=== PATIENT | female | born 1970 | race African-American/Black ===

== ENCOUNTER 2017-02-04 12:26 | Emergency (ER) | payer OTHER ==
[~2017-02-04] VITALS: Ht 167.6 cm; Wt 57.0 kg
[2017-02-04] MEDS ORDERED: LIPITOR (12:32)
[2017-02-04] MEDS ORDERED: PROZAC (12:32)
[2017-02-04] MEDS ORDERED: ZOLOFT (12:32)
[2017-02-04] MEDS ORDERED: MAGNESIUM/ALUMINUM HYDROXIDE/SIMETHICONE 30ML UDC PO STA (16:59)
[2017-02-04] MEDS ORDERED: SODIUM CHLORIDE 0.9% 1,000 ML IV ONE (16:59)
[2017-02-04] MEDS ORDERED: ONDANSETRON HCL 4MG/2ML VIAL IV STA (16:59)
[2017-02-04] MEDS ORDERED: MORPHINE SULFATE 4 MG/ML CPJ (NOT FOR IM USE) IV STA (16:59)
[2017-02-04 17:25] LABS: PROTHROMBIN TIME 10.5 sec
[2017-02-04 17:28] LABS: BASOPHILS % 0.8 % (0.0-2.0); EOSINOPHILS % 0.7 % (0.0-5.0); HEMATOCRIT. 35.2 % (36.0-48.0); HEMOGLOBIN. 11.8 g/dL (12.0-16.0); LYMPHOCYTES % 34.1 % (20.0-50.0); MEAN CORPUSCULAR VOLUME 83.4 fL (81.0-99.0); MEAN PLATELET VOLUME 7.3 fl (7.4-10.4); MONOCYTES % 8.9 % (2.0-8.0); NEUTROPHILS % 55.5 % (40.0-76.0); PLATELET 242 x1000/uL (130-400); RED BLOOD CELL COUNT 4.22 mill/uL (4.2-5.4); RED CELL DISTRIBUTION WIDTH 13.7 % (11.6-14.6)
[2017-02-04 17:32] LABS: CARBON DIOXIDE 25 mEq/L (21-32); CHLORIDE 108 mEq/L (98-107); ETHANOL BLOOD < 10 mg/dL
[2017-02-04 17:41] LABS: CLARITY URINE CLOUDY (CLEAR); COLOR URINE YELLOW (YELLOW); GLUCOSE URINE NEGATIVE (NEGATIVE); KETONES URINE NEGATIVE (NEGATIVE); LEUKOCYTE ESTERASE URINE NEGATIVE (NEGATIVE); NITRITE URINE NEGATIVE (NEGATIVE); OCCULT BLOOD URINE NEGATIVE (NEGATIVE); PH URINE 8.5 (4.5-8.0); PROTEIN URINE NEGATIVE (NEGATIVE); SPECIFIC GRAVITY URINE 1.014 (1.005-1.030); UROBILINOGEN URINE 0.2 E.U./dL (0.2-1.0)
[2017-02-04 18:03] LABS: *AMPHETAMINES SCREEN URINE NEGATIVE (NEGATIVE); *BARBITURATES SCREEN URINE NEGATIVE (NEGATIVE); *BENZODIAZEPINES SCREEN URINE NEGATIVE (NEGATIVE); *COCAINE SCREEN URINE NEGATIVE (NEGATIVE); METHADONE URINE SCREEN NEGATIVE (NEGATIVE); PHENCYCLIDINE URINE SCREEN NEGATIVE (NEGATIVE)
[2017-02-04 18:14] LABS: CANNABINOID URINE SCREEN PRESUMTIVE POSITIVE (NEGATIVE); OPIATES URINE SCREEN PRESUMTIVE POSITIVE (NEGATIVE)
[2017-02-04] MEDS ORDERED: FAMOTIDINE 20MG/2ML VIAL IV ONE (19:45)
[2017-02-04] MEDS ORDERED: MORPHINE SULFATE 2 MG/ML CPJ (NOT FOR IM USE) IV ONE (20:45)
[2017-02-04 20:48] VITALS: BP 128/72
== END 2017-02-04 21:40 | disposition home or self-care (01) ==
LOC: ER 13:38
DX: R10.13 Epigastric pain (principal); K29.70 Gastritis, unspecified, without bleeding; G43.909 Migraine, unspecified, not intractable, without status migrainosus; Z90.49 Acquired absence of other specified parts of digestive tract; Z90.710 Acquired absence of both cervix and uterus
CPT/HCPCS: 36415; 74176; 80053; 80305; 81001; 81025; 83690; 85025; 85610; 96361; 96374; 96375; 96376; 99285; G0482; J2270; J2405; J3490; Z7610; J7030

== ENCOUNTER 2018-08-31 07:48 | Emergency (ER) | payer MEDICAID, OTHER ==
[~2018-08-31] VITALS: Ht 149.9 cm; Wt 59.0 kg
[~2018-08-31 07:48] MED LIST: LIPITOR; PROZAC; ZOLOFT
[2018-08-31] MEDS ORDERED: HYDROCODONE/ACETAMINOPHEN 5/325MG TABLET PO ONE (08:45)
[2018-08-31] MEDS ORDERED: LORAZEPAM 1MG TABLET PO ONE (08:45)
[2018-08-31 09:28] VITALS: BP 150/92
== END 2018-08-31 09:29 | disposition home or self-care (01) ==
LOC: ER 07:48
DX: M54.9 Dorsalgia, unspecified (principal); F12.10 Cannabis abuse, uncomplicated; G43.909 Migraine, unspecified, not intractable, without status migrainosus; Z90.710 Acquired absence of both cervix and uterus; Z90.49 Acquired absence of other specified parts of digestive tract; Z98.890 Other specified postprocedural states; Z88.8 Allergy status to other drugs, medicaments and biological substances; Z88.6 Allergy status to analgesic agent
CPT/HCPCS: 81025; 99283

== ENCOUNTER 2021-08-29 14:47 | Inpatient (IN) | payer MEDICAID ==
[~2021-08-29] VITALS: Ht 149.9 cm; Wt 56.8 kg
[2021-08-29] MEDS ORDERED: ONDANSETRON HCL 4MG/2ML INJ IV STA ×3 (14:57→19:24)
[2021-08-29] MEDS ORDERED: MORPHINE SULFATE 4 MG/ML CPJ (NOT FOR IM USE) IV STA ×3 (14:57→19:24)
[2021-08-29] MEDS ORDERED: SODIUM CHLORIDE 0.9% 1,000 ML IV ONE ×2 (15:00→15:15)
[2021-08-29 15:36] LABS: BASOPHILS % 0.6 % (0.0-2.0); EOSINOPHILS % 0.8 % (0.0-5.0); HEMATOCRIT. 41.1 % (36.0-48.0); HEMOGLOBIN. 13.7 g/dL (12.0-16.0); LYMPHOCYTES % 29.1 % (20.0-50.0); MEAN CORPUSCULAR HEMOGLOBIN 27.8 pg (28.0-32.0); MEAN CORPUSCULAR VOLUME 83.6 fL (81.0-99.0); MEAN PLATELET VOLUME 7.7 fl (7.4-10.4); MONOCYTES % 12.4 % (2.0-8.0); NEUTROPHILS % 57.1 % (40.0-76.0); PLATELET 357 x1000/uL (130-400); RED BLOOD CELL COUNT 4.92 mill/uL (4.2-5.4); RED CELL DISTRIBUTION WIDTH 14.2 % (11.6-14.6)
[2021-08-29 15:44] LABS: CHLORIDE 102 mEq/L (98-107)
[2021-08-29 15:47] LABS: PARTIAL THROMBOPLASTIN TIME 26.5 sec (23.4-31.0); PROTHROMBIN TIME 10.5 sec (9.6-11.0)
[2021-08-29] MEDS ORDERED: POTASSIUM CHLORIDE 20MEQ TABLET SR PO ONE (16:30)
[2021-08-29] MEDS ORDERED: DOCUSATE SODIUM 100MG CAPSULE PO PRN (20:45)
[2021-08-29] MEDS ORDERED: ACETAMINOPHEN 325MG TABLET PO PRN ×2 (20:45)
[2021-08-29] MEDS ORDERED: ONDANSETRON HCL 4MG/2ML INJ IV PRN (20:45)
[2021-08-29] MEDS ORDERED: CLONIDINE 0.1MG TABLET PO PRN (20:45)
[2021-08-29] MEDS ORDERED: IPRATROPIUM/ALBUTEROL 0.5-3(2.5)MG/3ML NEB HHN PRN (20:45)
[2021-08-29] MEDS ORDERED: NALOXONE HCL 0.4MG/ML VIAL IV PRN (21:00)
[2021-08-29] MEDS: LORAZEPAM 0.5MG TABLET PO PRN (22:53)
[2021-08-29] MEDS: HYDROCODONE/ACETAMINOPHEN 5/325MG TABLET PO PRN (22:56)
[2021-08-29] MEDS ORDERED: AMIT75TA2 PO (23:35)
[2021-08-29] MEDS ORDERED: ATOR20TA65 PO (23:35)
[2021-08-29] MEDS ORDERED: OMEP40CA20 PO (23:35)
[2021-08-29] MEDS ORDERED: BUTA-251 PO (23:35)
[2021-08-29 23:40] VITALS: BP 107/60
[2021-08-30] VITALS: BP 111/68
[2021-08-30 04:00] VITALS: BP 108/75
[2021-08-30] MEDS: HYDROCODONE/ACETAMINOPHEN 5/325MG TABLET PO PRN ×2 (05:09→11:44)
[2021-08-30 06:54] LABS: BASOPHILS % 0.9 % (0.0-2.0); EOSINOPHILS % 2.2 % (0.0-5.0); HEMATOCRIT. 34.7 % (36.0-48.0); HEMOGLOBIN. 11.4 g/dL (12.0-16.0); LYMPHOCYTES % 28.6 % (20.0-50.0); MEAN CORPUSCULAR HEMOGLOBIN 27.4 pg (28.0-32.0); MEAN CORPUSCULAR VOLUME 83.6 fL (81.0-99.0); MEAN PLATELET VOLUME 7.6 fl (7.4-10.4); NEUTROPHILS % 54.3 % (40.0-76.0); PLATELET 307 x1000/uL (130-400); RED BLOOD CELL COUNT 4.15 mill/uL (4.2-5.4); RED CELL DISTRIBUTION WIDTH 14.2 % (11.6-14.6)
[2021-08-30 07:06] LABS: CHLORIDE 105 mEq/L (98-107)
[2021-08-30 08:00] VITALS: BP 99/60
[2021-08-30 12:00] VITALS: BP 108/67
[2021-08-30] MEDS: ENOXAPARIN 40MG/0.4ML SYR SUBCUT SCH (12:35)
[2021-08-30] MEDS: ATORVASTATIN CALCIUM 20MG TABLET PO SCH (13:51)
[2021-08-30] MEDS: MORPHINE SULFATE 2 MG/ML CPJ (NOT FOR IM USE) IV PRN ×2 (16:22→22:25)
[2021-08-30 16:30] VITALS: BP 113/65
[2021-08-30 18:58] LABS: CLARITY URINE CLEAR (CLEAR); COLOR URINE DARK YELLOW (YELLOW); KETONES URINE TRACE (NEGATIVE); LEUKOCYTE ESTERASE URINE TRACE (NEGATIVE); NITRITE URINE NEGATIVE (NEGATIVE); OCCULT BLOOD URINE TRACE (NEGATIVE); PH URINE 6.5 (4.5-8.0); PROTEIN URINE TRACE (NEGATIVE); SPECIFIC GRAVITY URINE 1.026 (1.005-1.030)
[2021-08-30 19:12] LABS: *AMPHETAMINES SCREEN URINE NEGATIVE (NEGATIVE); *BENZODIAZEPINES SCREEN URINE NEGATIVE (NEGATIVE)
[2021-08-30 19:13] LABS: *COCAINE SCREEN URINE NEGATIVE (NEGATIVE); METHADONE URINE SCREEN NEGATIVE (NEGATIVE); PHENCYCLIDINE URINE SCREEN NEGATIVE (NEGATIVE)
[2021-08-30 19:20] LABS: *BARBITURATES SCREEN URINE PRESUMTIVE POSITIVE (NEGATIVE); OPIATES URINE SCREEN PRESUMTIVE POSITIVE (NEGATIVE)
[2021-08-30 19:21] LABS: CANNABINOID URINE SCREEN PRESUMTIVE POSITIVE (NEGATIVE)
[2021-08-30 20:00] VITALS: BP 97/53
[2021-08-30] MEDS: AMITRIPTYLINE 25MG TABLET PO SCH (22:03)
[2021-08-31] VITALS: BP 95/65
[2021-08-31 04:00] VITALS: BP 100/63
[2021-08-31] MEDS: MORPHINE SULFATE 2 MG/ML CPJ (NOT FOR IM USE) IV PRN ×3 (05:47→21:07)
[2021-08-31 06:37] LABS: BASOPHILS % 0.8 % (0.0-2.0); EOSINOPHILS % 2.6 % (0.0-5.0); HEMATOCRIT. 33.9 % (36.0-48.0); HEMOGLOBIN. 11.3 g/dL (12.0-16.0); LYMPHOCYTES % 39.2 % (20.0-50.0); MEAN CORPUSCULAR HEMOGLOBIN 27.8 pg (28.0-32.0); MEAN CORPUSCULAR VOLUME 83.9 fL (81.0-99.0); MEAN PLATELET VOLUME 7.6 fl (7.4-10.4); MONOCYTES % 12.9 % (2.0-8.0); NEUTROPHILS % 44.5 % (40.0-76.0); PLATELET 300 x1000/uL (130-400); RED BLOOD CELL COUNT 4.04 mill/uL (4.2-5.4); RED CELL DISTRIBUTION WIDTH 14.1 % (11.6-14.6)
[2021-08-31 07:16] LABS: CHLORIDE 106 mEq/L (98-107)
[2021-08-31 07:32] LABS: VITAMIN B12 SERUM 512 pg/mL (211-911)
[2021-08-31 08:00] VITALS: BP 106/64
[2021-08-31] MEDS: ATORVASTATIN CALCIUM 20MG TABLET PO SCH (09:07)
[2021-08-31] MEDS: HYDROCODONE/ACETAMINOPHEN 5/325MG TABLET PO PRN ×2 (09:08→15:55)
[2021-08-31 12:00] VITALS: BP 102/60
[2021-08-31] MEDS: ENOXAPARIN 40MG/0.4ML SYR SUBCUT SCH (13:09)
[2021-08-31 16:00] VITALS: BP 130/83
[2021-08-31 20:15] VITALS: BP 110/80
[2021-08-31] MEDS: AMITRIPTYLINE 25MG TABLET PO SCH (21:10)
[2021-08-31] MEDS: CELECOXIB 200MG CAPSULE PO SCH (22:00)
[2021-09-01 00:01] VITALS: BP 112/83
[2021-09-01] MEDS: HYDROCODONE/ACETAMINOPHEN 5/325MG TABLET PO PRN ×2 (03:30→08:32)
[2021-09-01 04:00] VITALS: BP 106/64
[2021-09-01 07:29] LABS: BASOPHILS % 0.6 % (0.0-2.0); EOSINOPHILS % 0.7 % (0.0-5.0); HEMATOCRIT. 35.2 % (36.0-48.0); HEMOGLOBIN. 11.7 g/dL (12.0-16.0); LYMPHOCYTES % 22.4 % (20.0-50.0); MEAN CORPUSCULAR HEMOGLOBIN 27.9 pg (28.0-32.0); MEAN CORPUSCULAR VOLUME 83.7 fL (81.0-99.0); MEAN PLATELET VOLUME 7.5 fl (7.4-10.4); MONOCYTES % 10.7 % (2.0-8.0); NEUTROPHILS % 65.6 % (40.0-76.0); PLATELET 326 x1000/uL (130-400); RED BLOOD CELL COUNT 4.21 mill/uL (4.2-5.4); RED CELL DISTRIBUTION WIDTH 14.3 % (11.6-14.6)
[2021-09-01 07:36] LABS: CHLORIDE 107 mEq/L (98-107)
[2021-09-01 08:00] VITALS: BP 118/77
[2021-09-01] MEDS: CELECOXIB 200MG CAPSULE PO SCH (08:31)
[2021-09-01] MEDS: ATORVASTATIN CALCIUM 20MG TABLET PO SCH (08:31)
[2021-09-01] MEDS ORDERED: HYDROCODONE/ACETAMINOPHEN 5/325MG TABLET PO PRN (09:30)
[2021-09-01] MEDS: LORAZEPAM 0.5MG TABLET PO PRN (09:41)
[2021-09-01] MEDS ORDERED: TEMAZEPAM 15MG CAPSULE PO PRN (10:30)
[2021-09-01] MEDS: MORPHINE SULFATE 2 MG/ML CPJ (NOT FOR IM USE) IV PRN ×2 (11:49→20:53)
[2021-09-01 12:16] VITALS: BP 106/72
[2021-09-01] MEDS: ENOXAPARIN 40MG/0.4ML SYR SUBCUT SCH (12:44)
[2021-09-01] MEDS: LIDOCAINE 5% PATCH TOP SCH (12:44)
[2021-09-01] MEDS: CLONAZEPAM 0.5MG TABLET PO SCH ×2 (15:04→21:56)
[2021-09-01 15:50] VITALS: BP 109/65
[2021-09-01] MEDS: HYDROCODONE/ACETAMINOPHEN 10/325MG TABLET PO PRN (15:59)
[2021-09-01 20:15] VITALS: BP 102/69
[2021-09-01] MEDS ORDERED: AMITRIPTYLINE 25MG TABLET PO SCH (21:00)
[2021-09-02 00:19] VITALS: BP 102/60
[2021-09-02 04:00] VITALS: BP 98/61
[2021-09-02] MEDS: CLONAZEPAM 0.5MG TABLET PO SCH ×2 (06:13→13:14)
[2021-09-02 08:00] VITALS: BP 109/71
[2021-09-02] MEDS: CELECOXIB 200MG CAPSULE PO SCH (08:25)
[2021-09-02] MEDS: HYDROCODONE/ACETAMINOPHEN 10/325MG TABLET PO PRN (08:28)
[2021-09-02] MEDS: ATORVASTATIN CALCIUM 20MG TABLET PO SCH (08:28)
[2021-09-02] MEDS: LIDOCAINE 5% PATCH TOP SCH (08:29)
[2021-09-02] MEDS: LORAZEPAM 0.5MG TABLET PO PRN (10:15)
[2021-09-02] MEDS ORDERED: CLON0.5T4 PO (10:28)
[2021-09-02] MEDS ORDERED: CELE200C PO (10:28)
[2021-09-02] MEDS ORDERED: LIDO700A30 TOP (10:47)
[2021-09-02 12:00] VITALS: BP 105/72
[2021-09-02] MEDS: ENOXAPARIN 40MG/0.4ML SYR SUBCUT SCH (13:14)
[2021-09-02] MEDS: MORPHINE SULFATE 2 MG/ML CPJ (NOT FOR IM USE) IV PRN (13:19)
[2021-09-02 16:00] VITALS: BP 98/70
[2021-09-02 16:15] VITALS: BP 98/70
== END 2021-09-02 16:35 | disposition home or self-care (01) | DRG 351 ==
LOC: ER 15:18 → MICUSO 19:13 → 5WST 19:49
PROVIDERS: ADMIT Internal Medicine; ATTEND Internal Medicine
DX: M79.604 Pain in right leg (principal); F33.9 Major depressive disorder, recurrent, unspecified; K76.89 Other specified diseases of liver; M17.11 Unilateral primary osteoarthritis, right knee; Q85.00 Neurofibromatosis, unspecified; F41.9 Anxiety disorder, unspecified; E78.5 Hyperlipidemia, unspecified; S70.11XA Contusion of right thigh, initial encounter; E87.6 Hypokalemia; I10 Essential (primary) hypertension; G43.909 Migraine, unspecified, not intractable, without status migrainosus; R29.6 Repeated falls; R33.9 Retention of urine, unspecified; M47.816 Spondylosis without myelopathy or radiculopathy, lumbar region; W18.39XA Other fall on same level, initial encounter; M21.379 Foot drop, unspecified foot; F12.90 Cannabis use, unspecified, uncomplicated; F41.1 Generalized anxiety disorder; Z79.899 Other long term (current) drug therapy; Z90.49 Acquired absence of other specified parts of digestive tract; Z90.710 Acquired absence of both cervix and uterus; Z91.51 Personal history of suicidal behavior; Z88.8 Allergy status to other drugs, medicaments and biological substances; Y93.89 Activity, other specified; Y92.89 Other specified places as the place of occurrence of the external cause; Y99.8 Other external cause status; M41.34 Thoracogenic scoliosis, thoracic region
CPT/HCPCS: 36415; 70551; 71045; 72141; 72146; 72148; 73502; 73552; 73560; 76700; 80048; 80053; 80076; 80305; 81003; 82607; 83880; 84145; 84443; 84484; 85025; 85044; 85651; 86140; 86850; 86900; 87426; 93005; 93970; 97162; 99285; J1650; J2270; J2405; J7030; L1830; A4315

== ENCOUNTER 2021-09-09 07:24 | Inpatient (IN) | payer MEDICAID ==
[~2021-09-09] VITALS: Ht 149.9 cm; Wt 59.9 kg
[~2021-09-09 07:24] MED LIST changes: +AMIT75TA2 PO; +CELE200C PO; +CLON0.5T4 PO; +LIDO700A30 TOP; -LIPITOR; +OMEP40CA20 PO; -PROZAC; -ZOLOFT
[2021-09-09] MEDS ORDERED: HYDROCODONE/ACETAMINOPHEN 5/325MG TABLET PO STA (07:37)
[2021-09-09 08:21] LABS: BASOPHILS % 1.1 % (0.0-2.0); EOSINOPHILS % 0.7 % (0.0-5.0); HEMATOCRIT. 39.8 % (36.0-48.0); HEMOGLOBIN. 13.8 g/dL (12.0-16.0); LYMPHOCYTES % 36.9 % (20.0-50.0); MEAN PLATELET VOLUME 7.6 fl (7.4-10.4); MONOCYTES % 12.8 % (2.0-8.0); NEUTROPHILS % 48.5 % (40.0-76.0); PLATELET 399 x1000/uL (130-400); RED BLOOD CELL COUNT 4.92 mill/uL (4.2-5.4); RED CELL DISTRIBUTION WIDTH 14.2 % (11.6-14.6)
[2021-09-09 08:39] LABS: CLARITY URINE CLEAR (CLEAR); COLOR URINE YELLOW (YELLOW); KETONES URINE 2+ (NEGATIVE); LEUKOCYTE ESTERASE URINE 1+ (NEGATIVE); NITRITE URINE NEGATIVE (NEGATIVE); OCCULT BLOOD URINE TRACE (NEGATIVE); PH URINE 6.5 (4.5-8.0); PROTEIN URINE TRACE (NEGATIVE); SPECIFIC GRAVITY URINE 1.021 (1.005-1.030)
[2021-09-09] MEDS ORDERED: CEFTRIAXONE 1 G PREMIX 50 ML IV ONE (09:15)
[2021-09-09] MEDS ORDERED: SODIUM CHLORIDE 0.9% 1000ML BAG (SEPSIS BOLUS) IV ONE (09:15)
[2021-09-09 09:17] LABS: CHLORIDE 106 mEq/L (98-107)
[2021-09-09] MEDS ORDERED: MORPHINE SULFATE 4 MG/ML CPJ (NOT FOR IM USE) IV ONE (09:30)
[2021-09-09] MEDS ORDERED: POTASSIUM CHLORIDE INJ 40 MEQ in DEXT 5% WATER 500 ML IV ONE (09:45)
[2021-09-09] MEDS ORDERED: POTASSIUM CHLORIDE 20MEQ TABLET SR PO ONE (09:45)
[2021-09-09] MEDS: KCL 20MEQ/100ML PREMIX 100 ML IV SCH (11:00)
[2021-09-09 15:30] VITALS: BP 126/72
[2021-09-09 16:00] VITALS: BP 126/72
[2021-09-09] MEDS ORDERED: NALOXONE HCL 0.4MG/ML VIAL IV PRN (18:15)
[2021-09-09] MEDS: HYDROCODONE/ACETAMINOPHEN 10/325MG TABLET PO PRN (18:42)
[2021-09-09 20:00] VITALS: BP 140/95
[2021-09-10] VITALS: BP 124/83
[2021-09-10] MEDS: HYDROCODONE/ACETAMINOPHEN 10/325MG TABLET PO PRN ×3 (00:07→10:00)
[2021-09-10] MEDS: KCL 20MEQ/100ML PREMIX 100 ML IV SCH (02:28)
[2021-09-10] MEDS ORDERED: KCL 20MEQ/100ML PREMIX 100 ML IV SCH (03:00)
[2021-09-10 03:36] VITALS: BP 125/85
[2021-09-10 08:00] VITALS: BP 116/73
[2021-09-10] MEDS ORDERED: CEFTRIAXONE 1 G PREMIX 50 ML IV SCH (11:15)
[2021-09-10] MEDS ORDERED: CLONIDINE 0.1MG TABLET PO PRN (11:15)
[2021-09-10] MEDS ORDERED: ACETAMINOPHEN 325MG TABLET PO PRN (11:15)
[2021-09-10] MEDS ORDERED: ONDANSETRON HCL 4MG/2ML INJ IV PRN (11:15)
[2021-09-10] MEDS ORDERED: MAGNESIUM/ALUMINUM HYDROXIDE/SIMETHICONE 30ML UDC PO PRN (11:15)
[2021-09-10 12:00] VITALS: BP 126/84
[2021-09-10 16:00] VITALS: BP 140/73
[2021-09-10] MEDS: CLONAZEPAM 0.5MG TABLET PO SCH ×2 (18:44→20:45)
[2021-09-10] MEDS: HYDROCODONE/ACETAMINOPHEN 5/325MG TABLET PO PRN (18:45)
[2021-09-10] MEDS: ENOXAPARIN 40MG/0.4ML SYR SUBCUT SCH (18:47)
[2021-09-10] MEDS: CEFTRIAXONE 1,000 MG in DEXTROSE 5% WATER 50 ML IV SCH (18:50)
[2021-09-10] MEDS: LIDOCAINE 5% PATCH TOP SCH (18:54)
[2021-09-10 20:00] VITALS: BP 115/85
[2021-09-10] MEDS: AMITRIPTYLINE 25MG TABLET PO SCH (20:45)
[2021-09-11] VITALS: BP 135/82
[2021-09-11] MEDS: HYDROCODONE/ACETAMINOPHEN 5/325MG TABLET PO PRN ×3 (00:12→10:10)
[2021-09-11 04:00] VITALS: BP 119/80
[2021-09-11] MEDS: CLONAZEPAM 0.5MG TABLET PO SCH ×3 (05:23→20:35)
[2021-09-11] MEDS: OMEPRAZOLE 20MG CAPSULE EXTENDED RELEASE PO SCH (05:23)
[2021-09-11 08:00] VITALS: BP 120/77
[2021-09-11] MEDS: LIDOCAINE 5% PATCH TOP SCH (09:13)
[2021-09-11] MEDS: CELECOXIB 200MG CAPSULE PO SCH (09:13)
[2021-09-11 09:52] LABS: BASOPHILS % 0.9 % (0.0-2.0); EOSINOPHILS % 1.1 % (0.0-5.0); HEMATOCRIT. 35.6 % (36.0-48.0); HEMOGLOBIN. 12.3 g/dL (12.0-16.0); LYMPHOCYTES % 49.5 % (20.0-50.0); MEAN CORPUSCULAR HEMOGLOBIN 28.6 pg (28.0-32.0); MEAN CORPUSCULAR VOLUME 82.6 fL (81.0-99.0); MEAN PLATELET VOLUME 7.4 fl (7.4-10.4); MONOCYTES % 12.2 % (2.0-8.0); NEUTROPHILS % 36.3 % (40.0-76.0); PLATELET 311 x1000/uL (130-400); RED BLOOD CELL COUNT 4.31 mill/uL (4.2-5.4); RED CELL DISTRIBUTION WIDTH 14.7 % (11.6-14.6)
[2021-09-11 10:15] LABS: CHLORIDE 106 mEq/L (98-107)
[2021-09-11 10:26] LABS: LDL CHOLESTEROL 98 mg/dL (5-100); PHOSPHORUS 2.8 mg/dL (2.5-4.9)
[2021-09-11 10:29] LABS: HDL CHOLESTEROL 78 mg/dL (40-59); T4 FREE 0.86 ng/dL (0.76-1.46)
[2021-09-11 12:00] VITALS: BP 127/88
[2021-09-11] MEDS: CEFTRIAXONE 1,000 MG in DEXTROSE 5% WATER 50 ML IV SCH (12:26)
[2021-09-11] MEDS: ENOXAPARIN 40MG/0.4ML SYR SUBCUT SCH (12:26)
[2021-09-11] MEDS: HYDROCODONE/ACETAMINOPHEN 10/325MG TABLET PO PRN ×2 (15:27→20:02)
[2021-09-11 16:06] VITALS: BP 128/83
[2021-09-11 20:00] VITALS: BP 116/83
[2021-09-11] MEDS: AMITRIPTYLINE 25MG TABLET PO SCH (20:02)
[2021-09-12] VITALS: BP 113/73
[2021-09-12 04:00] VITALS: BP 114/73
[2021-09-12] MEDS: HYDROCODONE/ACETAMINOPHEN 10/325MG TABLET PO PRN ×5 (04:00→20:40)
[2021-09-12] MEDS: CLONAZEPAM 0.5MG TABLET PO SCH ×3 (05:19→22:36)
[2021-09-12] MEDS: OMEPRAZOLE 20MG CAPSULE EXTENDED RELEASE PO SCH (05:19)
[2021-09-12 08:00] VITALS: BP 130/98
[2021-09-12] MEDS ORDERED: MORPHINE SULFATE 2 MG/ML CPJ (NOT FOR IM USE) IV SCH (09:00)
[2021-09-12] MEDS: CELECOXIB 200MG CAPSULE PO SCH (09:20)
[2021-09-12] MEDS: LIDOCAINE 5% PATCH TOP SCH (09:21)
[2021-09-12] MEDS: PREGABALIN 50 MG CAPSULE PO SCH ×3 (09:48→22:36)
[2021-09-12 12:00] VITALS: BP 122/89
[2021-09-12] MEDS: ENOXAPARIN 40MG/0.4ML SYR SUBCUT SCH (12:29)
[2021-09-12] MEDS: CEFTRIAXONE 1,000 MG in DEXTROSE 5% WATER 50 ML IV SCH (12:29)
[2021-09-12 13:03] LABS: BASOPHILS % 0.7 % (0.0-2.0); EOSINOPHILS % 1.3 % (0.0-5.0); HEMATOCRIT. 35.4 % (36.0-48.0); HEMOGLOBIN. 11.6 g/dL (12.0-16.0); LYMPHOCYTES % 45.4 % (20.0-50.0); MEAN CORPUSCULAR HEMOGLOBIN 27.6 pg (28.0-32.0); MEAN CORPUSCULAR VOLUME 84.1 fL (81.0-99.0); MEAN PLATELET VOLUME 7.4 fl (7.4-10.4); MONOCYTES % 12.6 % (2.0-8.0); PLATELET 295 x1000/uL (130-400); RED BLOOD CELL COUNT 4.21 mill/uL (4.2-5.4); RED CELL DISTRIBUTION WIDTH 14.9 % (11.6-14.6)
[2021-09-12 13:22] LABS: CHLORIDE 106 mEq/L (98-107)
[2021-09-12 16:00] VITALS: BP 120/71
[2021-09-12 20:00] VITALS: BP 115/76
[2021-09-12] MEDS: AMITRIPTYLINE 25MG TABLET PO SCH (20:41)
[2021-09-13] VITALS: BP 107/79
[2021-09-13 04:00] VITALS: BP 116/71
[2021-09-13] MEDS: PREGABALIN 50 MG CAPSULE PO SCH ×3 (05:22→21:24)
[2021-09-13] MEDS: CLONAZEPAM 0.5MG TABLET PO SCH ×3 (05:22→21:24)
[2021-09-13] MEDS: HYDROCODONE/ACETAMINOPHEN 10/325MG TABLET PO PRN ×3 (05:23→16:15)
[2021-09-13 08:00] VITALS: BP 126/85
[2021-09-13] MEDS: HYDROCODONE/ACETAMINOPHEN 5/325MG TABLET PO PRN ×2 (08:41→20:07)
[2021-09-13] MEDS: CELECOXIB 200MG CAPSULE PO SCH (08:41)
[2021-09-13] MEDS: FAMOTIDINE 20MG TABLET PO SCH ×2 (08:41→16:15)
[2021-09-13] MEDS: LIDOCAINE 5% PATCH TOP SCH (08:42)
[2021-09-13] MEDS: ENOXAPARIN 40MG/0.4ML SYR SUBCUT SCH (11:44)
[2021-09-13 12:00] VITALS: BP 113/77
[2021-09-13] MEDS: CEFTRIAXONE 1,000 MG in DEXTROSE 5% WATER 50 ML IV SCH (13:00)
[2021-09-13 16:00] VITALS: BP 123/72
[2021-09-13 20:00] VITALS: BP 123/86
[2021-09-13] MEDS: AMITRIPTYLINE 25MG TABLET PO SCH (20:12)
[2021-09-14] VITALS (7 sets, daily range): BP systolic 105–132; BP diastolic 69–132
[2021-09-14] MEDS: HYDROCODONE/ACETAMINOPHEN 10/325MG TABLET PO PRN ×4 (04:37→20:28)
[2021-09-14] MEDS: PREGABALIN 50 MG CAPSULE PO SCH (06:03)
[2021-09-14] MEDS: CLONAZEPAM 0.5MG TABLET PO SCH ×2 (06:03→15:54)
[2021-09-14] MEDS: FAMOTIDINE 20MG TABLET PO SCH ×2 (06:29→20:34)
[2021-09-14] MEDS ORDERED: METHOCARBAMOL 500MG TABLET PO PRN (09:30)
[2021-09-14] MEDS: CELECOXIB 200MG CAPSULE PO SCH (09:44)
[2021-09-14] MEDS: LIDOCAINE 5% PATCH TOP SCH (09:45)
[2021-09-14] MEDS ORDERED: DIPHENHYDRAMINE 50MG CAPSULE PO PRN (10:15)
[2021-09-14] MEDS ORDERED: MORPHINE SULFATE 2 MG/ML CPJ (NOT FOR IM USE) IV NR (14:00)
[2021-09-14] MEDS ORDERED: PREGABALIN 25MG CAPSULE PO SCH (14:00)
[2021-09-14] MEDS: CEFTRIAXONE 1,000 MG in DEXTROSE 5% WATER 50 ML IV SCH (15:46)
[2021-09-14] MEDS: ENOXAPARIN 40MG/0.4ML SYR SUBCUT SCH (15:47)
[2021-09-14] MEDS: AMITRIPTYLINE 25MG TABLET PO SCH (20:27)
== END 2021-09-14 21:45 | DRG 48 ==
LOC: ER 07:24 → EDBEDREQTM 09:48 → EDBEDREQSVC 09:48 → 8WST 10:49 → EDBEDREQTM 10:55 → EDBEDREQ 10:55 → ENRESERV 12:19
PROVIDERS: ADMIT Internal Medicine; ATTEND Internal Medicine
DX: G62.9 Polyneuropathy, unspecified (principal); G82.50 Quadriplegia, unspecified; E87.6 Hypokalemia; F32.A Depression, unspecified; F41.9 Anxiety disorder, unspecified; F51.04 Psychophysiologic insomnia; F51.4 Sleep terrors [night terrors]; G89.4 Chronic pain syndrome; Z20.822 Contact with and (suspected) exposure to COVID-19; M17.11 Unilateral primary osteoarthritis, right knee; G43.909 Migraine, unspecified, not intractable, without status migrainosus; I10 Essential (primary) hypertension; M21.371 Foot drop, right foot; R33.9 Retention of urine, unspecified; N39.0 Urinary tract infection, site not specified; R53.81 Other malaise; Q85.00 Neurofibromatosis, unspecified; Z82.49 Family history of ischemic heart disease and other diseases of the circulatory system; Z87.891 Personal history of nicotine dependence; Z90.710 Acquired absence of both cervix and uterus; Z88.8 Allergy status to other drugs, medicaments and biological substances; Z90.49 Acquired absence of other specified parts of digestive tract; Z98.51 Tubal ligation status
CPT/HCPCS: 36415; 71045; 73560; 73721; 80048; 80053; 80061; 80076; 81003; 83605; 83735; 84100; 84145; 84439; 84443; 84484; 85025; 87426; 93005; 93970; 97116; 97162; 97166; 97530; 99291; A6261; J0696; J1650; J2270; J3480; J7030; J7040; J7060

== ENCOUNTER 2021-09-14 21:45 | Inpatient (IN) | payer MEDICAID ==
[~2021-09-14] VITALS: Ht 149.9 cm; Wt 68.0 kg
[2021-09-14 21:45] VITALS: BP 119/83
[2021-09-14] MEDS ORDERED: CLONIDINE 0.1MG TABLET PO PRN (23:15)
[2021-09-14] MEDS ORDERED: MAGNESIUM/ALUMINUM HYDROXIDE/SIMETHICONE 30ML UDC PO PRN (23:15)
[2021-09-14] MEDS ORDERED: ACETAMINOPHEN 325MG TABLET PO PRN (23:15)
[2021-09-14] MEDS ORDERED: ONDANSETRON HCL 4MG TABLET PO PRN (23:15)
[2021-09-14] MEDS ORDERED: NALOXONE HCL 0.4 MG/ML 1ML VIAL IV PRN (23:15)
[2021-09-14] MEDS: HYDROCODONE/ACETAMINOPHEN 10/325MG TABLET PO PRN (23:57)
[2021-09-15 05:59] VITALS: BP 114/80
[2021-09-15] MEDS: PREGABALIN 75MG CAPSULE PO SCH ×3 (05:59→21:12)
[2021-09-15] MEDS: METHOCARBAMOL 500MG TABLET PO SCH ×3 (05:59→21:12)
[2021-09-15] MEDS: CLONAZEPAM 0.5MG TABLET PO SCH ×3 (05:59→21:12)
[2021-09-15] MEDS ORDERED: PREGABALIN 25MG CAPSULE PO SCH (06:00)
[2021-09-15 07:51] LABS: HEMATOCRIT. 33.4 % (36.0-48.0); HEMOGLOBIN. 11.1 g/dL (12.0-16.0); MEAN CORPUSCULAR HEMOGLOBIN 28.1 pg (28.0-32.0); MEAN CORPUSCULAR VOLUME 84.6 fL (81.0-99.0); MEAN PLATELET VOLUME 7.7 fl (7.4-10.4); PLATELET 275 x1000/uL (130-400); RED BLOOD CELL COUNT 3.96 mill/uL (4.2-5.4)
[2021-09-15 07:57] LABS: CHLORIDE 108 mEq/L (98-107)
[2021-09-15 08:00] VITALS: BP 123/80
[2021-09-15] MEDS: LIDOCAINE 5% PATCH TOP SCH (08:29)
[2021-09-15] MEDS: CELECOXIB 200MG CAPSULE PO SCH (08:30)
[2021-09-15] MEDS: FAMOTIDINE 20MG TABLET PO SCH ×2 (08:30→21:12)
[2021-09-15] MEDS: ENOXAPARIN 40MG/0.4ML SYR SUBCUT SCH (08:39)
[2021-09-15] MEDS: HYDROCODONE/ACETAMINOPHEN 10/325MG TABLET PO PRN ×3 (08:40→18:39)
[2021-09-15] MEDS ORDERED: METHYLPREDNISOLONE SOD SUCC 125 MG/2 ML VIAL IV NR (11:30)
[2021-09-15 12:43] LABS: CLARITY URINE CLEAR (CLEAR); COLOR URINE YELLOW (YELLOW); KETONES URINE NEGATIVE (NEGATIVE); LEUKOCYTE ESTERASE URINE NEGATIVE (NEGATIVE); NITRITE URINE NEGATIVE (NEGATIVE); OCCULT BLOOD URINE NEGATIVE (NEGATIVE); PH URINE 6.5 (4.5-8.0); PROTEIN URINE NEGATIVE (NEGATIVE); SPECIFIC GRAVITY URINE 1.016 (1.005-1.030); UROBILINOGEN URINE 0.2 E.U./dL (0.2-1.0)
[2021-09-15] MEDS ORDERED: CEFTRIAXONE 1,000 MG in DEXTROSE 5% WATER 50 ML IV SCH ×3 (13:00)
[2021-09-15 13:37] LABS: PLATELET ESTIMATE NORMAL
[2021-09-15 20:00] VITALS: BP 121/86
[2021-09-15] MEDS ORDERED: AMITRIPTYLINE 50MG TABLET PO SCH (21:00)
[2021-09-15] MEDS: AMITRIPTYLINE 25MG TABLET PO SCH (21:12)
[2021-09-16] MEDS: METHOCARBAMOL 500MG TABLET PO SCH ×3 (06:43→21:34)
[2021-09-16] MEDS: CLONAZEPAM 0.5MG TABLET PO SCH ×3 (06:43→21:34)
[2021-09-16] MEDS: PREGABALIN 75MG CAPSULE PO SCH ×3 (06:43→21:34)
[2021-09-16 06:54] LABS: BASOPHILS % 0.4 % (0.0-2.0); HEMATOCRIT. 35.5 % (36.0-48.0); HEMOGLOBIN. 11.8 g/dL (12.0-16.0); LYMPHOCYTES % 26.1 % (20.0-50.0); MEAN CORPUSCULAR HEMOGLOBIN 27.9 pg (28.0-32.0); MEAN CORPUSCULAR VOLUME 84.2 fL (81.0-99.0); MEAN PLATELET VOLUME 7.5 fl (7.4-10.4); NEUTROPHILS % 61.5 % (40.0-76.0); PLATELET 302 x1000/uL (130-400); RED BLOOD CELL COUNT 4.22 mill/uL (4.2-5.4); RED CELL DISTRIBUTION WIDTH 14.4 % (11.6-14.6)
[2021-09-16 07:04] LABS: CHLORIDE 108 mEq/L (98-107)
[2021-09-16 07:19] LABS: TOTAL IRON BINDING CAPACITY 339 ug/dL (250-450)
[2021-09-16 07:26] LABS: FOLIC ACID (FOLATE) SERUM 10.1 ng/mL (>5.38)
[2021-09-16 08:00] VITALS: BP 133/86
[2021-09-16] MEDS: PREDNISONE 5MG TABLET PO SCH (09:28)
[2021-09-16] MEDS: FAMOTIDINE 20MG TABLET PO SCH ×2 (09:28→20:39)
[2021-09-16] MEDS: CELECOXIB 200MG CAPSULE PO SCH (09:28)
[2021-09-16] MEDS: ENOXAPARIN 40MG/0.4ML SYR SUBCUT SCH (09:29)
[2021-09-16] MEDS: LIDOCAINE 5% PATCH TOP SCH (09:30)
[2021-09-16] MEDS ORDERED: CYANOCOBALAMIN 1000MCG/ML VIAL IM NR (09:30)
[2021-09-16] MEDS ORDERED: PROCHLORPERAZINE 10MG/2ML VIAL IV NR (10:15)
[2021-09-16] MEDS ORDERED: HYDROMORPHONE HCL/PF 2MG/ML CPJ IV NR (10:15)
[2021-09-16] MEDS: ASCORBIC ACID 500 MG TABLET PO SCH (10:31)
[2021-09-16] MEDS: FERROUS SULFATE 325MG TABLET PO SCH ×2 (13:54→17:30)
[2021-09-16] MEDS: HYDROCODONE/ACETAMINOPHEN 10/325MG TABLET PO PRN ×2 (17:30→23:55)
[2021-09-16 20:00] VITALS: BP 123/75
[2021-09-16] MEDS: AMITRIPTYLINE 25MG TABLET PO SCH (20:39)
[2021-09-17] MEDS: METHOCARBAMOL 500MG TABLET PO SCH ×3 (05:52→22:05)
[2021-09-17] MEDS: PREGABALIN 75MG CAPSULE PO SCH ×3 (05:52→22:04)
[2021-09-17] MEDS: CLONAZEPAM 0.5MG TABLET PO SCH ×3 (05:52→22:05)
[2021-09-17 07:38] VITALS: BP 118/83
[2021-09-17] MEDS: CELECOXIB 200MG CAPSULE PO SCH (09:18)
[2021-09-17] MEDS: FERROUS SULFATE 325MG TABLET PO SCH ×3 (09:18→16:12)
[2021-09-17] MEDS: ENOXAPARIN 40MG/0.4ML SYR SUBCUT SCH (09:18)
[2021-09-17] MEDS: ASCORBIC ACID 500 MG TABLET PO SCH (09:18)
[2021-09-17] MEDS: HYDROCODONE/ACETAMINOPHEN 10/325MG TABLET PO PRN ×3 (09:19→20:23)
[2021-09-17] MEDS: FAMOTIDINE 20MG TABLET PO SCH ×2 (09:19→20:24)
[2021-09-17] MEDS: PREDNISONE 5MG TABLET PO SCH (09:19)
[2021-09-17] MEDS: LIDOCAINE 5% PATCH TOP SCH (09:20)
[2021-09-17] MEDS: BUTALBITAL/ACETAMINOPHEN/CAFFEINE 50/325/40MG TABLET PO PRN ×2 (16:16→22:07)
[2021-09-17 16:17] VITALS: BP 120/85
[2021-09-17 20:00] VITALS: BP 121/79
[2021-09-17] MEDS: AMITRIPTYLINE 25MG TABLET PO SCH (20:24)
[2021-09-18] MEDS: CLONAZEPAM 0.5MG TABLET PO SCH ×3 (05:42→20:49)
[2021-09-18] MEDS: METHOCARBAMOL 500MG TABLET PO SCH ×3 (05:43→20:49)
[2021-09-18] MEDS: PREGABALIN 75MG CAPSULE PO SCH ×3 (05:43→20:48)
[2021-09-18] MEDS: BUTALBITAL/ACETAMINOPHEN/CAFFEINE 50/325/40MG TABLET PO PRN ×3 (06:15→22:11)
[2021-09-18 07:55] VITALS: BP 132/93
[2021-09-18] MEDS: ASCORBIC ACID 500 MG TABLET PO SCH (08:13)
[2021-09-18] MEDS: PREDNISONE 5MG TABLET PO SCH (08:13)
[2021-09-18] MEDS: FAMOTIDINE 20MG TABLET PO SCH ×2 (08:13→20:48)
[2021-09-18] MEDS: ENOXAPARIN 40MG/0.4ML SYR SUBCUT SCH (08:14)
[2021-09-18] MEDS: FERROUS SULFATE 325MG TABLET PO SCH ×3 (08:14→16:13)
[2021-09-18] MEDS: LIDOCAINE 5% PATCH TOP SCH (08:15)
[2021-09-18] MEDS: CELECOXIB 200MG CAPSULE PO SCH (08:18)
[2021-09-18] MEDS: HYDROCODONE/ACETAMINOPHEN 10/325MG TABLET PO PRN ×4 (08:18→23:02)
[2021-09-18 20:00] VITALS: BP 116/42
[2021-09-18] MEDS: AMITRIPTYLINE 25MG TABLET PO SCH (20:48)
[2021-09-19] MEDS: HYDROCODONE/ACETAMINOPHEN 10/325MG TABLET PO PRN ×3 (03:11→12:09)
[2021-09-19] MEDS: BUTALBITAL/ACETAMINOPHEN/CAFFEINE 50/325/40MG TABLET PO PRN ×3 (04:07→23:46)
[2021-09-19] MEDS: PREGABALIN 75MG CAPSULE PO SCH (05:20)
[2021-09-19] MEDS: CLONAZEPAM 0.5MG TABLET PO SCH ×3 (05:20→22:00)
[2021-09-19] MEDS: METHOCARBAMOL 500MG TABLET PO SCH ×3 (05:20→22:00)
[2021-09-19] MEDS: ASCORBIC ACID 500 MG TABLET PO SCH (07:55)
[2021-09-19] MEDS: CELECOXIB 200MG CAPSULE PO SCH (07:55)
[2021-09-19] MEDS: FERROUS SULFATE 325MG TABLET PO SCH ×3 (07:55→16:49)
[2021-09-19] MEDS: FAMOTIDINE 20MG TABLET PO SCH ×2 (07:55→20:59)
[2021-09-19] MEDS: PREDNISONE 5MG TABLET PO SCH (07:55)
[2021-09-19] MEDS: LIDOCAINE 5% PATCH TOP SCH (07:57)
[2021-09-19 08:00] VITALS: BP 130/89
[2021-09-19] MEDS: ENOXAPARIN 40MG/0.4ML SYR SUBCUT SCH (08:05)
[2021-09-19] MEDS: PREGABALIN 50 MG CAPSULE PO SCH ×2 (14:25→22:00)
[2021-09-19 20:00] VITALS: BP 138/92
[2021-09-19] MEDS: MORPHINE SULFATE 30MG TABLET SR PO SCH (20:59)
[2021-09-19] MEDS: AMITRIPTYLINE 25MG TABLET PO SCH (21:00)
[2021-09-20] MEDS: PREGABALIN 50 MG CAPSULE PO SCH ×3 (05:52→22:06)
[2021-09-20] MEDS: METHOCARBAMOL 500MG TABLET PO SCH ×3 (05:52→22:05)
[2021-09-20] MEDS: CLONAZEPAM 0.5MG TABLET PO SCH (05:52)
[2021-09-20] MEDS: BUTALBITAL/ACETAMINOPHEN/CAFFEINE 50/325/40MG TABLET PO PRN ×3 (06:39→22:05)
[2021-09-20 08:00] VITALS: BP 132/87
[2021-09-20] MEDS: MORPHINE SULFATE 30MG TABLET SR PO SCH ×2 (09:26→20:54)
[2021-09-20] MEDS: LIDOCAINE 5% PATCH TOP SCH (09:27)
[2021-09-20] MEDS: ENOXAPARIN 40MG/0.4ML SYR SUBCUT SCH (09:27)
[2021-09-20] MEDS: PREDNISONE 5MG TABLET PO SCH (09:27)
[2021-09-20] MEDS: FERROUS SULFATE 325MG TABLET PO SCH ×3 (09:27→17:37)
[2021-09-20] MEDS: ASCORBIC ACID 500 MG TABLET PO SCH (09:27)
[2021-09-20] MEDS: CELECOXIB 200MG CAPSULE PO SCH (09:27)
[2021-09-20] MEDS: FAMOTIDINE 20MG TABLET PO SCH ×2 (09:27→20:53)
[2021-09-20] MEDS: HYDROCODONE/ACETAMINOPHEN 10/325MG TABLET PO PRN ×3 (10:59→23:06)
[2021-09-20 20:24] VITALS: BP 124/75
[2021-09-20] MEDS: AMITRIPTYLINE 25MG TABLET PO SCH (20:54)
[2021-09-20] MEDS: DIPHENHYDRAMINE 50MG CAPSULE PO PRN (20:55)
[2021-09-21] MEDS: HYDROCODONE/ACETAMINOPHEN 10/325MG TABLET PO PRN ×3 (02:58→15:47)
[2021-09-21] MEDS: BUTALBITAL/ACETAMINOPHEN/CAFFEINE 50/325/40MG TABLET PO PRN ×3 (04:01→17:46)
[2021-09-21] MEDS: METHOCARBAMOL 500MG TABLET PO SCH ×3 (05:59→21:54)
[2021-09-21] MEDS: DIPHENHYDRAMINE 50MG CAPSULE PO PRN (05:59)
[2021-09-21] MEDS: PREGABALIN 50 MG CAPSULE PO SCH ×3 (05:59→21:51)
[2021-09-21 07:21] LABS: HEMATOCRIT. 33.8 % (36.0-48.0); HEMOGLOBIN. 11.5 g/dL (12.0-16.0); MEAN CORPUSCULAR HEMOGLOBIN 28.4 pg (28.0-32.0); MEAN CORPUSCULAR VOLUME 83.4 fL (81.0-99.0); MEAN PLATELET VOLUME 7.9 fl (7.4-10.4); PLATELET 283 x1000/uL (130-400); RED BLOOD CELL COUNT 4.05 mill/uL (4.2-5.4); RED CELL DISTRIBUTION WIDTH 15.3 % (11.6-14.6)
[2021-09-21] MEDS: CELECOXIB 200MG CAPSULE PO SCH (07:59)
[2021-09-21 08:00] VITALS: BP 118/85
[2021-09-21] MEDS: FERROUS SULFATE 325MG TABLET PO SCH ×3 (08:00→16:44)
[2021-09-21] MEDS: PREDNISONE 5MG TABLET PO SCH (08:01)
[2021-09-21] MEDS: MORPHINE SULFATE 30MG TABLET SR PO SCH ×2 (08:01→21:54)
[2021-09-21] MEDS: ENOXAPARIN 40MG/0.4ML SYR SUBCUT SCH (08:01)
[2021-09-21] MEDS: FAMOTIDINE 20MG TABLET PO SCH ×2 (08:01→21:54)
[2021-09-21] MEDS: ASCORBIC ACID 500 MG TABLET PO SCH (08:01)
[2021-09-21] MEDS: LIDOCAINE 5% PATCH TOP SCH (08:02)
[2021-09-21 08:23] LABS: CHLORIDE 107 mEq/L (98-107)
[2021-09-21] MEDS: PAROXETINE HCL 10MG TABLET PO SCH (13:17)
[2021-09-21 14:35] LABS: PLATELET ESTIMATE NORMAL
[2021-09-21 20:00] VITALS: BP 124/95
[2021-09-21] MEDS: AMITRIPTYLINE 25MG TABLET PO SCH (21:50)
[2021-09-22] MEDS: BUTALBITAL/ACETAMINOPHEN/CAFFEINE 50/325/40MG TABLET PO PRN ×4 (00:55→23:00)
[2021-09-22] MEDS: METHOCARBAMOL 500MG TABLET PO SCH ×3 (06:08→22:06)
[2021-09-22] MEDS: PREGABALIN 50 MG CAPSULE PO SCH ×3 (06:08→22:05)
[2021-09-22 06:11] LABS: CHLORIDE 106 mEq/L (98-107)
[2021-09-22 08:00] VITALS: BP 127/83
[2021-09-22] MEDS: ASCORBIC ACID 500 MG TABLET PO SCH (08:46)
[2021-09-22] MEDS: MORPHINE SULFATE 30MG TABLET SR PO SCH ×2 (08:47→21:02)
[2021-09-22] MEDS: CELECOXIB 200MG CAPSULE PO SCH (08:48)
[2021-09-22] MEDS: PREDNISONE 5MG TABLET PO SCH (08:48)
[2021-09-22] MEDS: FAMOTIDINE 20MG TABLET PO SCH ×2 (08:48→21:01)
[2021-09-22] MEDS: PAROXETINE HCL 10MG TABLET PO SCH (08:48)
[2021-09-22] MEDS: FERROUS SULFATE 325MG TABLET PO SCH ×4 (08:48→17:58)
[2021-09-22] MEDS: LIDOCAINE 5% PATCH TOP SCH (08:49)
[2021-09-22] MEDS: ENOXAPARIN 40MG/0.4ML SYR SUBCUT SCH (08:50)
[2021-09-22] MEDS: HYDROCODONE/ACETAMINOPHEN 10/325MG TABLET PO PRN ×3 (12:02→22:06)
[2021-09-22 15:40] LABS: HEPATITIS B SURFACE ANTIGEN NEGATIVE
[2021-09-22 20:00] VITALS: BP 137/88
[2021-09-22] MEDS: AMITRIPTYLINE 25MG TABLET PO SCH (21:00)
[2021-09-22] MEDS: DIPHENHYDRAMINE 50MG CAPSULE PO PRN (22:05)
[2021-09-23] MEDS: HYDROCODONE/ACETAMINOPHEN 10/325MG TABLET PO PRN ×4 (04:05→23:59)
[2021-09-23] MEDS: PREGABALIN 50 MG CAPSULE PO SCH ×3 (06:00→22:09)
[2021-09-23] MEDS: DIPHENHYDRAMINE 50MG CAPSULE PO PRN ×2 (06:00→20:58)
[2021-09-23] MEDS: BUTALBITAL/ACETAMINOPHEN/CAFFEINE 50/325/40MG TABLET PO PRN ×3 (06:00→22:09)
[2021-09-23] MEDS: METHOCARBAMOL 500MG TABLET PO SCH ×3 (06:00→22:08)
[2021-09-23 08:00] VITALS: BP_SYST 112; BP_SYST 137; BP_DIAS 53; BP_DIAS 93
[2021-09-23] MEDS: ASCORBIC ACID 500 MG TABLET PO SCH (08:32)
[2021-09-23] MEDS: PREDNISONE 5MG TABLET PO SCH (08:32)
[2021-09-23] MEDS: PAROXETINE HCL 10MG TABLET PO SCH (08:32)
[2021-09-23] MEDS: ENOXAPARIN 40MG/0.4ML SYR SUBCUT SCH (08:32)
[2021-09-23] MEDS: FAMOTIDINE 20MG TABLET PO SCH ×2 (08:32→17:50)
[2021-09-23] MEDS: CELECOXIB 200MG CAPSULE PO SCH (08:32)
[2021-09-23] MEDS: MORPHINE SULFATE 30MG TABLET SR PO SCH ×2 (08:33→20:58)
[2021-09-23] MEDS: LIDOCAINE 5% PATCH TOP SCH (08:35)
[2021-09-23] MEDS: FERROUS SULFATE 325MG TABLET PO SCH ×2 (13:09→17:50)
[2021-09-23 20:00] VITALS: BP 147/97
[2021-09-23] MEDS: AMITRIPTYLINE 25MG TABLET PO SCH (20:57)
[2021-09-24] MEDS: BUTALBITAL/ACETAMINOPHEN/CAFFEINE 50/325/40MG TABLET PO PRN ×2 (03:57→12:21)
[2021-09-24] MEDS: METHOCARBAMOL 500MG TABLET PO SCH ×2 (06:06→13:43)
[2021-09-24] MEDS: DIPHENHYDRAMINE 50MG CAPSULE PO PRN (06:06)
[2021-09-24] MEDS: FAMOTIDINE 20MG TABLET PO SCH (06:06)
[2021-09-24] MEDS: PREGABALIN 50 MG CAPSULE PO SCH ×2 (06:06→13:43)
[2021-09-24] MEDS: HYDROCODONE/ACETAMINOPHEN 10/325MG TABLET PO PRN ×2 (06:07→10:12)
[2021-09-24 08:00] VITALS: BP 135/94
[2021-09-24] MEDS: ASCORBIC ACID 500 MG TABLET PO SCH (08:45)
[2021-09-24] MEDS: CELECOXIB 200MG CAPSULE PO SCH (08:45)
[2021-09-24] MEDS: PAROXETINE HCL 10MG TABLET PO SCH (08:45)
[2021-09-24] MEDS: PREDNISONE 5MG TABLET PO SCH (08:46)
[2021-09-24] MEDS: FERROUS SULFATE 325MG TABLET PO SCH ×2 (08:46→12:20)
[2021-09-24] MEDS: MORPHINE SULFATE 30MG TABLET SR PO SCH (08:46)
[2021-09-24] MEDS: ENOXAPARIN 40MG/0.4ML SYR SUBCUT SCH (08:47)
[2021-09-24] MEDS: LIDOCAINE 5% PATCH TOP SCH (08:47)
[2021-09-24 11:14] VITALS: BP 135/94
[2021-09-24] MEDS ORDERED: METH-773 PO (11:33)
[2021-09-24] MEDS ORDERED: PREG100C PO (11:34)
[2021-09-24] MEDS ORDERED: NALO4SPR BOTHNSTRLS (11:35)
[2021-09-24] MEDS ORDERED: HYDR-4009 MT (11:36)
[2021-09-24 12:21] VITALS: BP 140/58
[2021-09-24 17:06] LABS: 25-HYDROXY VITAMIN D3 29 ng/mL (.)
== END 2021-09-24 15:14 | disposition home or self-care (01) | DRG 58 ==
PROVIDERS: ADMIT Physical Medicine & Rehabilitation Spinal Cord Injury Medicine; ATTEND Internal Medicine
DX: Q85.00 Neurofibromatosis, unspecified (principal); G82.50 Quadriplegia, unspecified; M41.34 Thoracogenic scoliosis, thoracic region; G89.4 Chronic pain syndrome; M17.11 Unilateral primary osteoarthritis, right knee; M21.379 Foot drop, unspecified foot; F41.9 Anxiety disorder, unspecified; F51.04 Psychophysiologic insomnia; F32.A Depression, unspecified; E87.6 Hypokalemia; F51.4 Sleep terrors [night terrors]; Z82.49 Family history of ischemic heart disease and other diseases of the circulatory system; Z87.891 Personal history of nicotine dependence; Z90.710 Acquired absence of both cervix and uterus; R53.81 Other malaise; R33.9 Retention of urine, unspecified; D49.2 Neoplasm of unspecified behavior of bone, soft tissue, and skin; R51.9 Headache, unspecified; R53.1 Weakness; R20.2 Paresthesia of skin; R20.0 Anesthesia of skin; G62.9 Polyneuropathy, unspecified; R74.01 Elevation of levels of liver transaminase levels; R29.6 Repeated falls; E61.1 Iron deficiency
CPT/HCPCS: 36415; 76700; 80048; 80053; 81003; 82306; 82607; 82728; 82746; 83540; 83550; 84134; 84443; 84450; 84460; 85025; 86705; 86709; 86803; 87340; 93970; 97110; 97112; 97116; 97150; 97163; 97166; 97530; 97535; A6261; J0696; J0780; J1170; J1650; J2930; J3420; J7060; J7512; Q0163

== ENCOUNTER 2024-05-12 11:03 | Inpatient (IN) | payer MEDICAID ==
[~2024-05-12] VITALS: Ht 162.6 cm; Wt 68.0 kg
[~2024-05-12 11:03] MED LIST changes: +CEL200 PO; -CELE200C PO; +HYDR-4009 MT; +METH-773 PO; +NALO4SPR BOTHNSTRLS; +PREG100C PO
[2024-05-12] MEDS: HYDROCODONE/ACETAMINOPHEN 5/325MG TABLET PO STA (11:40)
[2024-05-12 12:14] LABS: BASOPHILS % 0.5 % (0.0-2.0); EOSINOPHILS % 0.7 % (0.0-5.0); HEMATOCRIT. 42.8 % (36.0-48.0); HEMOGLOBIN. 14.7 g/dL (12.0-16.0); LYMPHOCYTES % 25.4 % (20.0-50.0); MEAN CORPUSCULAR HGB CONC 34.4 g/dL (31.0-37.0); MEAN CORPUSCULAR VOLUME 84.3 fL (81.0-99.0); MONOCYTES % 11.2 % (2.0-8.0); NEUTROPHILS % 62.2 % (40.0-76.0); PLATELET 341 x1000/uL (130-400); RED BLOOD CELL COUNT 5.07 mill/uL (4.2-5.4); RED CELL DISTRIBUTION WIDTH 13.8 % (11.6-14.6); WHITE BLOOD COUNT 9.3 x1000/uL (4.5-11.0)
[2024-05-12 12:22] LABS: CHLORIDE 108 mEq/L (98-107); POTASSIUM 3.4 mEq/L (3.5-5.1); SODIUM 139 mEq/L (136-145)
[2024-05-12 12:23] LABS: CARBON DIOXIDE 18 mEq/L (21-32)
[2024-05-12 12:24] LABS: CALCIUM 9.5 mg/dL (8.7-10.4)
[2024-05-12 12:28] LABS: CREATININE 0.7 mg/dL (0.6-1.0); GLUCOSE 55 mg/dL (70-105)
[2024-05-12 12:29] LABS: UREA NITROGEN BLOOD 15 mg/dL (9-23)
[2024-05-12 12:50] LABS: INR 0.9; PROTHROMBIN TIME 10.4 sec (9.6-11.0)
[2024-05-12] MEDS: MORPHINE SULFATE 4 MG/ML INJ (FOR IV/IM USE) IV ONE (13:31)
[2024-05-12] MEDS ORDERED: GUAIFENESIN 200MG/10ML SUGAR FREE UDC PO PRN (15:15)
[2024-05-12] MEDS ORDERED: ACETAMINOPHEN 325MG TABLET PO PRN (15:15)
[2024-05-12] MEDS ORDERED: DOCUSATE SODIUM 100MG CAPSULE PO PRN (15:15)
[2024-05-12] MEDS ORDERED: CLONIDINE 0.1MG TABLET PO PRN (15:30)
[2024-05-12 16:00] VITALS: BP 128/89; PULSE 106; RESP 20; TEMP 36.16956; O2SAT 98
[2024-05-12] MEDS ORDERED: DEXTROSE 50% WATER 50ML SYRINGE IV PRN (16:30)
[2024-05-12 16:32] LABS: PHOSPHORUS 2.5 mg/dL (2.5-4.9)
[2024-05-12 17:19] VITALS: BP 128/89; PULSE 106; RESP 20; TEMP 36.1956
[2024-05-12] MEDS: CLONAZEPAM 0.5MG TABLET PO SCH (17:59)
[2024-05-12] MEDS: MORPHINE SULFATE 2 MG/ML INJ (NOT FOR IM USE) IV PRN (17:59)
[2024-05-12] MEDS: POTASSIUM CHLORIDE 20MEQ TABLET SR PO NR (18:00)
[2024-05-12] MEDS: DEXT 5%/0.45% NACL 1000ML 1,000 ML IV SCH (18:00)
[2024-05-12] MEDS: HYDROCHLOROTHIAZIDE 25MG TABLET PO SCH (18:00)
[2024-05-12] MEDS: LIDOCAINE 5% PATCH TOP SCH (18:01)
[2024-05-12 20:00] VITALS: BP 107/74; PULSE 94; RESP 18; TEMP 36.44736; O2SAT 98
[2024-05-12] MEDS: ENOXAPARIN 40MG/0.4ML SYR SUBCUT SCH (20:44)
[2024-05-12] MEDS ORDERED: NALOXONE HCL 0.4MG/ML VIAL IV PRN (20:45)
[2024-05-12] MEDS: HYDROCODONE/ACETAMINOPHEN 5/325MG TABLET PO PRN (20:54)
[2024-05-12] MEDS ORDERED: LEVETIRACETAM 250MG TABLET PO SCH (21:00)
[2024-05-12] MEDS: PREGABALIN 50 MG CAPSULE PO SCH (21:26)
[2024-05-12] MEDS: ATORVASTATIN CALCIUM 40MG TABLET PO SCH (21:26)
[2024-05-12] MEDS: AMITRIPTYLINE 25MG TABLET PO SCH (21:27)
[2024-05-12] MEDS: LEVETIRACETAM 500MG TABLET PO SCH (21:57)
[2024-05-13] VITALS: BP 104/68; PULSE 92; RESP 18; TEMP 36.3918; O2SAT 99
[2024-05-13 01:04] LABS: CREATINE KINASE 46 IU/L (34-145)
[2024-05-13 01:13] LABS: TROPONIN I HIGH SENSITIVITY < 4 ng/L (3.0-34)
[2024-05-13 04:00] VITALS: BP 111/76; PULSE 91; RESP 18; TEMP 36.50292; O2SAT 99
[2024-05-13] MEDS: PANTOPRAZOLE 40MG DR TABLET PO SCH (06:42)
[2024-05-13 08:00] VITALS: BP 108/72; PULSE 83; RESP 20; TEMP 36.78072; O2SAT 100
[2024-05-13 08:17] LABS: BASOPHILS % 0.2 % (0.0-2.0); EOSINOPHILS % 1.1 % (0.0-5.0); HEMATOCRIT. 41.9 % (36.0-48.0); HEMOGLOBIN. 13.9 g/dL (12.0-16.0); LYMPHOCYTES % 16.2 % (20.0-50.0); MEAN CORPUSCULAR HEMOGLOBIN 28.1 pg (28.0-32.0); MEAN CORPUSCULAR HGB CONC 33.2 g/dL (31.0-37.0); MEAN CORPUSCULAR VOLUME 84.7 fL (81.0-99.0); MEAN PLATELET VOLUME 7.7 fl (7.4-10.4); MONOCYTES % 11.2 % (2.0-8.0); NEUTROPHILS % 71.3 % (40.0-76.0); PLATELET 326 x1000/uL (130-400); RED BLOOD CELL COUNT 4.94 mill/uL (4.2-5.4); RED CELL DISTRIBUTION WIDTH 13.8 % (11.6-14.6); WHITE BLOOD COUNT 7.2 x1000/uL (4.5-11.0)
[2024-05-13 08:51] LABS: CARBON DIOXIDE 26 mEq/L (21-32); CHLORIDE 105 mEq/L (98-107); POTASSIUM 3.6 mEq/L (3.5-5.1); SODIUM 136 mEq/L (136-145)
[2024-05-13 08:52] LABS: CALCIUM 9.4 mg/dL (8.7-10.4)
[2024-05-13 08:54] LABS: CREATINE KINASE 60 IU/L (34-145)
[2024-05-13 08:55] LABS: ALBUMIN 4.1 g/dL (3.2-4.8); BILIRUBIN DIRECT 0.1 mg/dL (<=3.0)
[2024-05-13 08:56] LABS: ALANINE AMINOTRANSFERASE 283 IU/L (10-49); ALBUMIN 4.1 g/dL (3.2-4.8); ASPARTATE AMINOTRANSFERASE 395 IU/L (<34); BILIRUBIN TOTAL 0.4 mg/dL (0.1-1.0); PROTEIN TOTAL 7.2 g/dL (6.0-8.3)
[2024-05-13 08:57] LABS: CREATININE 0.7 mg/dL (0.6-1.0); GLUCOSE 95 mg/dL (70-105); TRIGLYCERIDE 112 mg/dL (0-150); UREA NITROGEN BLOOD 8 mg/dL (9-23)
[2024-05-13 08:58] LABS: LDL CHOLESTEROL 94 mg/dL (5-100); T4 FREE 1.09 ng/dL (0.89-1.76)
[2024-05-13 08:59] LABS: CHOLESTEROL 174 mg/dL (<200); HDL CHOLESTEROL 58 mg/dL (>65); THYROID STIMULATING HORMONE 3.82 uIU/mL (0.55-4.78)
[2024-05-13 09:15] LABS: TROPONIN I HIGH SENSITIVITY < 4 ng/L (3.0-34)
[2024-05-13] MEDS ORDERED: GADOTERATE MEGLUMINE 5 MMOL/10 ML VIAL IV ONE (10:11)
[2024-05-13 12:00] VITALS: BP 113/86; PULSE 89; RESP 20; TEMP 36.28068; O2SAT 99
[2024-05-13] MEDS: LORAZEPAM 0.5MG TABLET PO PRN (15:33)
[2024-05-13 16:00] VITALS: BP 150/104; PULSE 110; RESP 20; TEMP 36.61404; O2SAT 100
[2024-05-13 20:00] VITALS: BP 111/81; PULSE 102; RESP 18; TEMP 36.78072; O2SAT 100
[2024-05-13] MEDS: PREGABALIN 50 MG CAPSULE PO SCH (20:22)
[2024-05-13] MEDS: METHOCARBAMOL 750MG TABLET PO SCH (22:47)
[2024-05-14] VITALS: BP 118/92; PULSE 98; RESP 18; TEMP 36.55848; O2SAT 99
[2024-05-14] MEDS: ACETAMINOPHEN 325MG TABLET PO PRN (03:55)
[2024-05-14 04:00] VITALS: BP 108/77; PULSE 89; RESP 18; TEMP 36.00288; O2SAT 100
[2024-05-14 06:31] LABS: CALCIUM 9.9 mg/dL (8.7-10.4); CHLORIDE 106 mEq/L (98-107); POTASSIUM 3.4 mEq/L (3.5-5.1); SODIUM 141 mEq/L (136-145)
[2024-05-14 06:32] LABS: CARBON DIOXIDE 30 mEq/L (21-32)
[2024-05-14 06:37] LABS: CREATININE 0.7 mg/dL (0.6-1.0); GLUCOSE 103 mg/dL (70-105); UREA NITROGEN BLOOD 11 mg/dL (9-23)
[2024-05-14 06:39] LABS: PHOSPHORUS 2.7 mg/dL (2.5-4.9)
[2024-05-14] MEDS: SODIUM CHLORIDE 0.9% 1,000 ML IV SCH (06:53)
[2024-05-14 07:05] LABS: HEMATOCRIT 43.4 % (36.0-48.0); HEMOGLOBIN 14.6 g/dL (12.0-16.0); MEAN CORPUSCULAR HEMOGLOBIN 28.2 pg (28.0-32.0); MEAN CORPUSCULAR HGB CONC 33.6 g/dL (31.0-37.0); MEAN CORPUSCULAR VOLUME 84.1 fL (81.0-99.0); PLATELET 341 x1000/uL (130-400); RED BLOOD CELL COUNT 5.16 mill/uL (4.2-5.4); RED CELL DISTRIBUTION WIDTH 13.7 % (11.6-14.6); WHITE BLOOD COUNT 6.6 x1000/uL (4.5-11.0)
[2024-05-14 08:00] VITALS: BP 119/83; PULSE 96; RESP 20; TEMP 36.61404; O2SAT 100
[2024-05-14] MEDS: POTASSIUM CHLORIDE 20MEQ TABLET SR PO NR (08:48)
[2024-05-14 12:00] VITALS: BP 117/91; PULSE 100; RESP 20; TEMP 36.22512; O2SAT 100
[2024-05-14 12:01] VITALS: RESP 20
[2024-05-14 14:52] VITALS: BP 117/91; PULSE 100; TEMP 97.1; O2SAT 99
== END 2024-05-14 15:10 | disposition home or self-care (01) | DRG 53 ==
LOC: ER 11:28 → EDBEDREQ 12:48 → 6WST 16:26
PROVIDERS: ADMIT Internal Medicine; ATTEND Internal Medicine
DX: G40.909 Epilepsy, unspecified, not intractable, without status epilepticus (principal); S09.8XXA Other specified injuries of head, initial encounter; R53.2 Functional quadriplegia; M41.84 Other forms of scoliosis, thoracic region; Q85.09 Other neurofibromatosis; E16.2 Hypoglycemia, unspecified; E78.5 Hyperlipidemia, unspecified; Z91.148 Patient's other noncompliance with medication regimen for other reason; M54.50 Low back pain, unspecified; G89.29 Other chronic pain; F41.9 Anxiety disorder, unspecified; E87.6 Hypokalemia; F32.A Depression, unspecified; G43.909 Migraine, unspecified, not intractable, without status migrainosus; I10 Essential (primary) hypertension; W18.39XA Other fall on same level, initial encounter; Z88.8 Allergy status to other drugs, medicaments and biological substances; Z79.899 Other long term (current) drug therapy; Z90.49 Acquired absence of other specified parts of digestive tract; Z90.710 Acquired absence of both cervix and uterus; Y93.89 Activity, other specified; Y92.89 Other specified places as the place of occurrence of the external cause; Y99.8 Other external cause status
CPT/HCPCS: 36415; 71045; 72157; 72158; 73501; 73560; 76705; 80048; 80061; 80076; 82040; 82542; 82550; 82962; 83036; 83735; 84100; 84439; 84443; 84484; 85025; 85027; 93005; 93970; 97116; 97162; 97166; 99285; A9577; C1893; J1650; J2270; J7030